=== PATIENT | male | born 1990 | race Caucasian/White ===

== ENCOUNTER 2020-07-21 14:35 | Inpatient (IN) | payer SELFPAY ==
[2020-07-21 14:38] VITALS: BP 130/93; PULSE 71; RESP 18; TEMP 36.7; O2SAT 99; BMI 36.5
--- NOTE | 2020-07-21 14:53 | W.ED.PSYCH ---
HPI - Psych General: Chief Complaint: Psychiatric Symptoms Stated Complaint: SI Time Seen by Provider: 07/21/20 14:46 History of Present Illness: HPI Narrative: Patient comes in with statement that he just did not want to be here on earth anymore. Does not have a plan to take his life. Has been treated for bipolar and major depression in the past is been about 10 years to been on medication. His mom is in the room with him and she is 1 of brought him here. Patient says he just does not want to go on 11 he said feels been lying about stuff and he just cannot get it straightened out and he just had 1 beer anymore. Denies any other problems presently. His dad had history of the same MD complaint: suicidal ideation and feels depressed Onset (ago): day(s) Duration: constant and getting worse History of same: Yes Relieving factors: none Associated psychiatric symptoms: other (Bipolar) Associated symptoms: Reports no associated symptoms, depression and suicidal ideation Treatments prior to arrival: none If self harm: admits thoughts of self harm Review of Systems Const: Denies: fever(s), chills or body aches Eyes: Denies: change in vision or blurry vision ENMT: Denies: throat pain or nasal congestion Card: Denies: chest pain or dyspnea on exertion Resp: Denies: dyspnea, productive cough or non-productive cough GI: Denies: abdominal pain, nausea or vomiting : Denies: difficulty urinating Musc: Denies: extremity pain Skin/Breast: Denies: rash Neuro: Denies: headache(s) Psych: Reports: depression, hopelessness, loss of interest and suicidal ideation; Denies: anxiety Romel/Lymph: Denies: easy bruising Physical Exam Const: COMMON NORMALS: no acute distress, average body habitus and patient oriented x3 HENMT: COMMON NORMALS: normocephalic HEAD & SCALP: normal to inspection and normocephalic FACE & SINUS: normal facial exam Eye: COMMON NORMALS: conjunctivae normal GENERAL EYE: appearance normal, both eyes and all related structures CONJUNCTIVA: Yes conjunctivae normal Neck/C-Spine: COMMON NORMALS: no JVD Chest: COMMONS NORMALS: normal inspection of the chest Resp: COMMON NORMALS: normal respiratory effort Cardio: COMMON NORMALS: no JVD GI: COMMON NORMALS: Normal to inspection, nondistended, normoactive bowel sounds present Extremity: COMMON NORMALS: normal to inspection and full ROM Neuro: COMMON NORMALS: patient oriented x3 Psych: COMMON NORMALS: mental status grossly normal, Normal thought process present and speech normal APPEARANCE: Yes grossly normal ATTITUDE: Yes engaged ACTIVITY/MOTOR BEHAVIOR: Yes appropriate eye contact SPEECH: Yes normal speech and Yes minimal MOOD & AFFECT: Yes depressed mood THOUGHT PROCESS: Normal thought process present THOUGHT CONTENT: Yes Suicidality present ATTENTION/CONCENTRATION: Yes attention grossly intact MEMORY/COGNITION: Yes memory grossly intact INSIGHT: Good insight present (Psych) MDM - Psych Lab Data: Labs: Lab Results 07/21/20 07/21/20 07/21/20 Range/Units 15:10 15:10 15:10 WBC 8.8 (4.0-10.0) 10^3/ uL RBC 5.59 H (4.1-5.3) 10^6/u L Hgb 16.3 (11.7-16.6) g/dL Hct 48.5 (42.0-52.0) % MCV 86.8 (80-94) fL MCH 29.2 (28.0-34.0) pg MCHC 33.6 (30.0-36.0) g/dL RDW 12.4 (12.1-15.1) % Plt Count 275 (130-400) 10^3/c mm MPV 9.4 (7.4-10.4) fL Neut % (Auto) 62.3 % Lymph % (Auto) 26.4 % [place] % (Auto) 9.0 % Eos % (Auto) 1.4 % Baso % (Auto) 0.6 % Neut # (Auto) 5.49 (1.8-7.7) 10^3/u L Lymph # (Auto) 2.3 (0.8-4.8) 10^3/u L [place] # (Auto) 0.8 (0.2-0.9) 10^3/u L Eos # (Auto) 0.1 (0.0-0.8) 10^3/u L Baso # (Auto) 0.1 (0.0-0.1) 10^3/u L Nucleated RBC % (a uto) 0 % Nucleated RBCs # 0.0 /100WBC Sodium 137 (136-145) mmol/L Potassium 4.0 (3.5-5.1) mmol/L Chloride 101 (98-107) mmol/L Carbon Dioxide 25 (22-29) mmol/L Anion Gap 15.0 (5-19) BUN 15 (6-20) mg/dL Creatinine 1.0 (0.7-1.2) mg/dL GFR Calculation 86.6 L (90-130) mL/min Glucose 87 (65-115) mg/dL Calculated Osmolal ity 284 L (285-295) mOsm/k g Calcium 9.2 (8.5-10.5) mg/dL Total Bilirubin 0.8 (0.15-1.2) mg/dL AST 18 (0-40) U/L ALT 20 (0-41) U/L Alkaline Phosphata se 55 (40-130) IU/L Total Protein 7.7 (6.6-8.7) g/dL Albumin 4.9 (3.5-5.2) g/dL Globulin 2.8 (1.3-4.6) g/dL Urine Color Yellow (Yellow) Urine Appearance Clear (CLEAR) Urine pH 6.5 (5-7) Ur Specific Gravit y 1.015 (1.005-1.030) Urine Protein Neg (Negative) Urine Glucose (UA) Norm (Normal) Urine Ketones Negative (Negative) Urine Blood Neg (Negative) Urine Nitrate Negative (Negative) Urine Bilirubin Neg (Negative) Urine Urobilinogen 1 H (Negative) mg/dL Ur Leukocyte Jeanine ase Negative (Negative) Salicylates < 0.3 L (3-10) mg/dL Urine Opiates Scre en (Negative) ng/mL Acetaminophen < 5.0 L (10-30) ug/mL Ur Barbiturates Sc reen (Negative) ng/mL Ur Phencyclidine S crn (Negative) ng/mL Ur Amphetamines Sc reen (Negative) ng/mL U Benzodiazepines Scrn (Negative) ng/mL Urine Cocaine Scre en (Negative) ng/mL U Marijuana (THC) Screen (Negative) ng/mL 07/21/20 Range/Units 15:10 WBC (4.0-10.0) 10^3/ uL RBC (4.1-5.3) 10^6/u L Hgb (11.7-16.6) g/dL Hct (42.0-52.0) % MCV (80-94) fL MCH (28.0-34.0) pg MCHC (30.0-36.0) g/dL RDW (12.1-15.1) % Plt Count (130-400) 10^3/c mm MPV (7.4-10.4) fL Neut % (Auto) % Lymph % (Auto) % [place] % (Auto) % Eos % (Auto) % Baso % (Auto) % Neut # (Auto) (1.8-7.7) 10^3/u L Lymph # (Auto) (0.8-4.8) 10^3/u L [place] # (Auto) (0.2-0.9) 10^3/u L Eos # (Auto) (0.0-0.8) 10^3/u L Baso # (Auto) (0.0-0.1) 10^3/u L Nucleated RBC % (a uto) % Nucleated RBCs # /100WBC Sodium (136-145) mmol/L Potassium (3.5-5.1) mmol/L Chloride (98-107) mmol/L Carbon Dioxide (22-29) mmol/L Anion Gap (5-19) BUN (6-20) mg/dL Creatinine (0.7-1.2) mg/dL GFR Calculation (90-130) mL/min Glucose (65-115) mg/dL Calculated Osmolal ity (285-295) mOsm/k g Calcium (8.5-10.5) mg/dL Total Bilirubin (0.15-1.2) mg/dL AST (0-40) U/L ALT (0-41) U/L Alkaline Phosphata se (40-130) IU/L Total Protein (6.6-8.7) g/dL Albumin (3.5-5.2) g/dL Globulin (1.3-4.6) g/dL Urine Color (Yellow) Urine Appearance (CLEAR) Urine pH (5-7) Ur Specific Gravit y (1.005-1.030) Urine Protein (Negative) Urine Glucose (UA) (Normal) Urine Ketones (Negative) Urine Blood (Negative) Urine Nitrate (Negative) Urine Bilirubin (Negative) Urine Urobilinogen (Negative) mg/dL Ur Leukocyte Jeanine ase (Negative) Salicylates (3-10) mg/dL Urine Opiates Scre en Negative (Negative) ng/mL Acetaminophen (10-30) ug/mL Ur Barbiturates Sc reen Negative (Negative) ng/mL Ur Phencyclidine S crn Negative (Negative) ng/mL Ur Amphetamines Sc reen Positive H (Negative) ng/mL U Benzodiazepines Scrn Negative (Negative) ng/mL Urine Cocaine Scre en Negative (Negative) ng/mL U Marijuana (THC) Screen Positive H (Negative) ng/mL Discharge Plan Discharge Patient Disposition: Admitted As Inpatient Admit Provider: Ayla Moyer Clinical Impression: Suicidal ideation, Drug abuse Condition: Stable Coding Level of Care Code ED Receptionist/Telephone Operator for Na Fwd Exam Comprehensive
[2020-07-21 15:23] LABS: Basophils # 0.1 10^3/uL (0.0-0.1); Basophils % 0.6 %; Eosinophils # 0.1 10^3/uL (0.0-0.8); Eosinophils % 1.4 %; Hematocrit 48.5 % (42.0-52.0); Hemoglobin 16.3 g/dL (11.7-16.6); Lymphocytes # 2.3 10^3/uL (0.8-4.8); Lymphocytes % 26.4 %; Mean Corpuscular HGB Conc 33.6 g/dL (30.0-36.0); Mean Corpuscular Hemoglobin 29.2 pg (28.0-34.0); Mean Corpuscular Volume 86.8 fL (80-94); Mean Platelet Volume 9.4 fL (7.4-10.4); Monocytes # 0.8 10^3/uL (0.2-0.9); Neutrophils # 5.49 10^3/uL (1.8-7.7); Neutrophils % 62.3 %; Nucleated Red Blood Cells % 0 %; Platelet Count 275 10^3/cmm (130-400); Red Blood Count 5.59 10^6/uL (4.1-5.3); Red Cell Distribution Width 12.4 % (12.1-15.1); White Blood Count 8.8 10^3/uL (4.0-10.0)
[2020-07-21 15:24] LABS: Add Urine Microscopic? NO; Charge for UA Resulting for Rev
[2020-07-21 15:33] LABS: Bilirubin Urine Neg (Negative); Blood Urine Neg (Negative); Glucose Urine UA Norm (Normal); Ketones Urine Negative (Negative); Nitrate Urine Negative (Negative); Protein Urine Neg (Negative); Specific Gravity, Urine 1.015 (1.005-1.030); Urine Appearance Clear (CLEAR); Urine Color Yellow (Yellow); pH Urine 6.5 (5-7)
[2020-07-21 15:34] LABS: Leukocyte Esterase Urine Negative (Negative); Urobilinogen Urine 1 mg/dL (Negative)
[2020-07-21 15:44] LABS: Alanine Aminotransferase 20 U/L (0-41); Albumin Level 4.9 g/dL (3.5-5.2); Alkaline Phosphatase 55 IU/L (40-130); Aspartate Amino Transferase 18 U/L (0-40); Blood Urea Nitrogen 15 mg/dL (6-20); Calcium 9.2 mg/dL (8.5-10.5); Carbon Dioxide 25 mmol/L (22-29); Chloride 101 mmol/L (98-107); Globulin 2.8 g/dL (1.3-4.6); Glomerular Filtration Rate 86.6 mL/min (90-130); Glucose 87 mg/dL (65-115); Osmolality Calculated 284 mOsm/kg (285-295); Sodium 137 mmol/L (136-145); Total Bilirubin 0.8 mg/dL (0.15-1.2); Total Protein 7.7 g/dL (6.6-8.7)
[2020-07-21 15:51] LABS: Amphetamines Screen Urine Positive (Negative); Barbiturates Screen Urine Negative (Negative); Benzodiazepines Screen Urine Negative (Negative); Cocaine Screen Urine Negative (Negative); Opiate Screen Urine Negative (Negative); PCP Screen Urine Negative (Negative); THC Screen Urine Positive (Negative)
[2020-07-21 15:54] LABS: Acetaminophen < 5.0 ug/mL (10-30); Salicylate < 0.3 mg/dL (3-10)
[2020-07-21 16:27] VITALS: BP 140/98; PULSE 75; RESP 16; O2SAT 98
[2020-07-21 16:39] VITALS: BP 123/84; PULSE 62; RESP 17; TEMP 36.4; O2SAT 99
[2020-07-21 20:31] VITALS: BP 128/90; PULSE 82; RESP 18; TEMP 36.8; O2SAT 100
[2020-07-21] MEDS: trazodone 50 mg Tablet PO ×2 (21:15→23:13)
--- NOTE | 2020-07-21 21:18 | PC.NURSE ---
PRN MED PT GIVEN 50MG [id number] FOR INSOMNIA, WILL CONTINUE TO MONITOR.
--- NOTE | 2020-07-21 22:09 | PC.NURSE ---
PRN MED MED EFFECTIVE, PT RESTING IN BED O S/S OF DISTRESS, WILL CONTINUE TO MONITOR.
--- NOTE | 2020-07-21 23:15 | PC.NURSE ---
PRN MED PT GIVEN 2ND 50MG TRAZODONE FOR INSOMNIA, WILL CONTINUE TO MONITOR.
[2020-07-21] MEDS: hyDROXYzine 25 mg Capsule 50 MG PO (23:25)
--- NOTE | 2020-07-21 23:33 | PC.NURSE ---
anxious pt is having a hard time resting, called his mother to go home, pt decided to stay, requested trazodone dose 2 and something for anxiety, educated on use of sleep aide and anxiety medication visteril, notified med nurse of pt need.
--- NOTE | 2020-07-21 23:35 | PC.NURSE ---
PM assessment pt is in his room, resting in his bed at the beginning of shift. Pt denied SI/HI/AH/VH. Endorses feeling down and feeling out of place. Stated his anxiety is minimal, however later in the shift, patient became more anxious, unable to sleep, requested sleep and anxiety prn's. pt called his mother, wants to go home. med nurse notified, prns given for sleep/anxiety. v/s are wnl, heart/lung sounds are wnl, denies pain at this time. will continue to observe.
[2020-07-22 06:00] VITALS: BP 108/70; PULSE 82; RESP 17; TEMP 36.5; O2SAT 96
--- NOTE | 2020-07-22 12:52 | P.HP_ITS ---
Providers/Chief Complaint Admitting Physician: Ayla Moyer DO Chief Complaint: SI HPI NPU History of Present Illness Stephen Tucker is a 30 year old male with longstanding history of cannabis abuse and reported past history of bipolar disorder presented to the emergency department with depressive symptoms in the context of an acute stressor of saying that people were calling him a liar about a recent situation which caused him to feel hurt. He states that he has denied any active thoughts about h arming himself and denies any history of suicide attempts or self-harm behavior. Patient's urine drug screen was noted to be positive for methamphetamine and he reports that he had used methamphetamine 3 days ago for the first time in approximately 3 years during which time he had used for about 1-1/2-years. Patient states that most recently he was feeling down, sad and occasionally tearful for the past several days after this recent event but in the past typically experiences depressive symptoms for about a week. He describes these periods as decreased motivation and decreased energy and decreased interest in his usual activities. He also reports that he has not engaged in many hobbies that he enjoys for quite a while. Patient reports his current living arrangement and life circumstances as exacerbating his symptoms. Per above, patient denies any past suicide attempts or self-harm but does report passive thoughts of not being here, or not wanting to be on earth. Patient reports that he had been told that he has bipolar disorder in the past but then describes periods of impulsive shopping or spending his money but these have been outside the context of any decreased need for sleep or pressured speech or periods of irritability or any other signs or symptoms consistent with a manic or hypomanic episode. He has experienced periods of decreased need for sleep and pressured speech during past episodes of methamphetamine use. Patient reports that he has experienced perceptual disturbances in the past with methamphetamine use but denies experiencing any hallucinations outside of substance use. He denies any paranoia or delusions or overvalued ideas. Patient states that he started using marijuana around the age of 18 and has used on a near daily basis since then. Patient reports that he first started using methamphetamine around the age 26 and used for a year and a half with no use for 3-year period until a couple days ago. Patient states that he has not taken any psychotropic medication for about 5 years and denies any history of substance treatment or counseling or therapy. Patient reports interest in starting a low-dose antidepressant as well as look ing into substance treatment and counseling. Review of Systems General: Reports: 10 or more systems reviewed and unremarkable except in HPI and below Meds NPU Home Medications Medication Instructions Recorded Confirmed Last Taken Type No Known Home Medications 07/21/20 07/21/20 Unknown History Allergies Allergy/AdvReac Type Severity Reaction Status Date / Time No Known Allergies Allergy Verified 07/21/20 14:43 COUNT INCLUDES THE [facility] NPU Other Psychiatric History: Other Psychiatric History: States that he was treated at [facility] about 5 years ago for a short period of time Denies any history of psychiatric hospitalization Denies any history of suicide attempt or self-harm behavior Patient does report family history of father committing suicide prior to his Reports family history of mother and sister with depression Denies any family history of psychiatric hospitalization Mental Status Exam MSE Comments: Appears stated age, shaved head, bearded, appropriately groomed and dressed in hospital scrubs, calm, cooperative, good eye contact Psychomotor activity is somewhat decreased, no agitation Speech is soft, normal rate, spontaneous, fair articulation, not pressured I am okay, incongruent, constricted, not labile Alert and oriented to person, place, time, situation Memory and concentration appear to be intact per interview Intellectual functioning appears to be average at best based on vocabulary, interview Thought process, occasional delays, linear, no flight of ideas, no looseness of associations Thought content, no delusions, no hallucinations, no suicidal homicidal ideation Insight and judgment appear to be intact Vitals/I&O/Wt Last Vital Signs Temp 97.7 F 07/22/20 06:00 Pulse 82 07/22/20 06:00 Resp 17 07/22/20 06:00 BP 108/70 07/22/20 06:00 Pulse Ox 96 07/22/20 06:00 Weight last 48 hrs Weight 108.862 kg Data NPU : 07/21/20 15:10 07/21/20 15:10 A&P Assessment and plan (1) Suicidal ideation: Status: Acute (2) Substance abuse: Status: Acute (3) Depressive disorder: Status: Acute Additional A&P Information 30-year-old male presenting with passive suicidal thoughts with ongoing depressive symptoms in the context of recent stressor. Patient has longstanding cannabis abuse with recent use of methamphetamine with past history of ongoing methamphetamine abuse. Patient has history of bipolar disorder although does not appear to articulate any past manic or hypomanic episodes but reports some impulse control with spending outside the context of any sustained mood symptoms. Patient would likely benefit from ongoing substance counseling/treatment as well as treatment with low-dose antidepressant targeting his depressive symptoms in conjunction with counseling/therapy targeting more adaptive coping strategies. VOLUNTARY ADMIT to inpatient psychiatry START citalopram 10 mg daily Coordinate with long term care social worker for post discharge treatment, substance counselin g/treatment Involuntary Hold Information 96 Hour Hold: 96 Hour Involuntary Admission: No Attestations NPU Medical Necessity Statement*: Require psychiatric hospitalization for medication stabilization, coordination for safe discharge Anticipate hospital stay to exceed 2 midnights Time Spent in Patient Care: Greater than 35 minutes (>than 50% of time spent in counselling and/or direct pt care on unit) . Coding Level of Care Code Acute Global Creative Chairman for Na Owen Diagnoses Suicidal ideation R45.851 Substance abuse F19.10 Depressive disorder F32.9
[2020-07-22] MEDS: citalopram 20 mg Tablet 10 MG PO (13:25)
[2020-07-22] MEDS: acetaminophen 325 mg Tablet 650 MG PO (13:27)
[2020-07-22 14:00] VITALS: BP 115/78; PULSE 80; RESP 18; TEMP 36.7; O2SAT 97
[2020-07-22] MEDS: trazodone 50 mg Tablet PO (20:31)
[2020-07-22 20:39] VITALS: BP 119/83; PULSE 81; RESP 18; TEMP 36.4; O2SAT 97
--- NOTE | 2020-07-22 23:28 | PC.NURSE ---
PM assessment PT V/S ARE WNL, HEART/LUNG SOUNDS ARE NORMAL, PT DENIES SI/HI, DENIES PAIN, DENIES AH/VH. PT IS OUT OF ROOM IN THE DAYROOM, WALKING WITH OTHER PATIENTS, HE IS TALKATIVE TONIGHT, OVERALL HE SAYS HE IS TOLERATING CELEXA WELL, EDUCATED ON MEDICATION, COMPLIANCE, FOLLOW UP CARE, NECESSITY OF JOURNAL ENTRIES IF HE NOTICES MOOD SWINGS OR ANY SIDE EFFECTS, WRITTEN INFO GIVEN TO PT ON REQUEST. PT SAYS HE IS SAD, EXPRESSED CONCERNS ABOUT SEEING HIS CHILD, FIGHTING CUSTODY, AND ABOUT A FACEBOOK POST MADE REGARDING THE POSSIBLE OF A FRIEND, THE BACKLASH ON SOCIAL MEDIA REGARDING HIS MISTAKEN POST, AND HIS GUILT FOR FEELING INADEQUATE. PT ASKS QUESTIONS, ANSWERS APPROPRIATELY. PT IS MUCH MORE OPEN THIS EVENING. PT REQUESTED MEDICATION TO HELP HIM SLEEP THIS EVENING, MED NURSE NOTIFIED, WILL CONTINUE TO OBSERVE.
[2020-07-23 06:00] VITALS: BP 103/69; PULSE 80; RESP 17; TEMP 36.4; O2SAT 97
[2020-07-23] MEDS: citalopram 20 mg Tablet 10 MG PO (08:52)
--- NOTE | 2020-07-23 13:16 | PM.NPN ---
Subjective NPU Subjective: Interval history: Patient reports improved sleep and appetite Reports tolerating medication well with no reports of any medication side effects States that his depressive symptoms have improved, denies any interval suicidal ideation Patient continues to communicate his understanding of the need to abstain from the use of substances and continues to demonstrate interest in wanting to pursue outpatient substance counseling/treatment Per staff report, no interval behavioral disturbances Mental Status Exam MSE Comments: Polite, interactive, appropriately groomed and dressed, good eye contact Psychomotor activity is neither increased nor decreased, no agitation Speech is normal volume, normal rate, spontaneous, fair articulation, not pressured I feel a little better, congruent, not labile Alert and oriented to person, place, time, situation Memory and concentration appear to be intact per interview Thought process, linear, no flight of ideas, no looseness of associations Thought content, no delusions, no hallucinations, no suicidal or homicidal ideation Insight and judgment appear to be intact Vitals/I&O/Wt Last Vital Signs Temp 97.5 F L 07/23/20 06:00 Pulse 80 07/23/20 06:00 Resp 17 07/23/20 06:00 BP 103/69 07/23/20 06:00 Pulse Ox 97 07/23/20 06:00 Weight last 48 hrs Weight 108.862 kg Data NPU : 07/21/20 15:10 07/21/20 15:10 A&P Assessment and plan (1) Suicidal ideation: Status: Acute (2) Depressive disorder: Status: Acute (3) Substance abuse: Status: Acute Additional A&P Information Reports tolerating medication well with no reports of any medication side effects, reports improvement in depressive symptoms, denies any interval suicidal ideation motivation to pursue substance counseling treatment post discharge. CONTINUE current medication, continue to monitor Involuntary Hold Information 96 Hour Hold: 96 Hour Involuntary Admission: No Attestations NPU Medical Necessity Statement*: Continues to require psychiatric hospitalization for medication stabilization, coordination for safe discharge Coding Level of Care Code Acute Steel Pourer for Na Owen Diagnoses Suicidal ideation R45.851 Depressive disorder F32.9 Substance abuse F19.10
[2020-07-23 14:00] VITALS: BP 104/65; PULSE 89; RESP 17; TEMP 37.1
[2020-07-23 20:05] VITALS: BP 111/65; PULSE 73; RESP 18; TEMP 37; O2SAT 98
[2020-07-23] MEDS: trazodone 50 mg Tablet PO (20:06)
--- NOTE | 2020-07-23 21:11 | PC.NURSE ---
pt given Trazodone 50mg po per pt request for sleep aide at 2006. pt resting quietly with both eyes closed.
[2020-07-24 06:00] VITALS: BP 110/70; PULSE 68; RESP 18; TEMP 36.6; O2SAT 96
[2020-07-24] MEDS: citalopram 20 mg Tablet 10 MG PO (08:14)
--- NOTE | 2020-07-24 09:55 | P.DS_ITS ---
Diagnoses at Discharge Discharge Diagnosis (1) Suicidal ideation: Status: Acute (2) Depressive disorder: Status: Acute (3) Substance abuse: Status: Acute Reason for Visit Reason for Visit: SI Hospital Course Hospital Course 30 year old male with longstanding history of cannabis abuse and reported past history of bipolar disorder presented to the emergency department with depressive symptoms in the context of an acute stressor of saying that people were calling him a liar about a recent situation which caused him to feel hurt. Patient continued to endorse intermittent depressive symptoms but denied any active suicidal ideation at the time of initial evaluation. Patient was started on citalopram 10 mg daily targeting depressive symptoms with good effect and no report of any medication side effects. Patient participated in unit milieu with no reports of any behavioral disturbances. Patient communicated active interest in seeking post discharge therapy and substance counseling. He was not suicidal at the time of discharge and did not appear to pose an imminent threat of harm to self or others. Low to moderate risk of harm to self given no current suicidal ideation and no history of suicide attempts although patient's risk may be elevated if he continues to abuse substances or is noncompliant with his medication and medication management follow-up leading to maladaptive coping strategies and unexpected, impulsive behavior. Risk mitigation included psychiatric hospitalization for observation for return of any suicidal ideation or behaviors, medication stabilization, recommendation to abstain from the use of substances and alcohol as well as the need for post discharge compliance with medication, medication management and substance counseling/treatment in order to target the development of more adaptive coping strategies. Patient was able to communicate his understanding of the need to abstain from the use of substances and alcohol as well as the need for compliance with his post discharge care to include medication, medication management and counseling in order to further mitigate his risk of harm to self or others. Involuntary Hold Information 96 Hour Hold: 96 Hour Involuntary Admission: No Mental Status Exam MSE Comments: Sitting in the day room, calm, cooperative, appropriately groomed and dressed, good eye contact Psychomotor activity is neither increased nor decreased, no agitation Speech is normal volume, normal rate, spontaneous, fair articulation, not pressured I feel good, congruent, not labile Alert and oriented to person, place, time, situation Memory and concentration appear to be intact per interview Thought process, linear, no flight of ideas, no looseness of associations Thought content, no delusions, no hallucinations, no suicidal or homicidal ideation Insight and judgment appear to be intact Discharge Data Vitals: Last Vital Signs Temp 97.9 F 07/24/20 06:00 Pulse 68 07/24/20 06:00 Resp 18 07/24/20 06:00 BP 110/70 07/24/20 06:00 Pulse Ox 96 07/24/20 06:00 Discharge Plan Discharge Patient Disposition: Home Condition: Stable Prescriptions: New citalopram 20 mg Tablet 10 mg PO DAILY Qty: 30 RF: 0 Discharge Orders: Discharge Order (Routine); Ordered 07/24/20 Ordered By: Ayla Moyer Discharge Diet: Regular Discharge Activity: Resume usual activity Discharge Attestations NPU Time Spent in Discharge Care*: greater than 30 min Status at Discharge: Cognitive status at discharge: cognitively intact , Behavioral status at discharge: cooperative , Functional status at discharge: independent ambulation Overall status at discharge: patient is back to baseline Coding Level of Care Code Acute Bake Room Worker for Na Fwd Diagnoses Suicidal ideation R45.851 Depressive disorder F32.9 Substance abuse F19.10
[2020-07-24 10:16] VITALS: BP 110/70; PULSE 68; RESP 18; TEMP 36.6; O2SAT 96
== END 2020-07-24 12:47 | disposition home or self-care (01) | DRG 881 ==
LOC: ER 15:58 → NP 16:17
PROVIDERS: Admitting Provider Psychiatry & Neurology Psychiatry; Emergency Provider Nurse Practitioner Family; Visit Provider Psychiatry & Neurology Psychiatry
DX: F32.9 Major depressive disorder, single episode, unspecified (principal); R45.851 Suicidal ideations; F15.10 Other stimulant abuse, uncomplicated; F12.10 Cannabis abuse, uncomplicated
CPT/HCPCS: 80053; 80306; 80307; 81003; 85025; 99285

== ENCOUNTER 2021-10-28 18:47 | Emergency (ER) | payer MEDICAID, SELFPAY ==
[2021-10-28 18:56] VITALS: BP 123/82; PULSE 103; RESP 16; TEMP 36.5; O2SAT 96
--- NOTE | 2021-10-28 19:54 | W.ED.WOUNDLC ---
HPI - Wound/Laceration General: Chief Complaint: Wound/Laceration Stated Complaint: R arm lac form busted window Time Seen by Provider: 10/28/21 19:35 History of Present Illness: Patient is a 31-year-old male comes to the ED with laceration to right forearm. Injury occurred around 3 PM today. Patient says he got mad and punched a glass window with his right fist. He broke the glass and caused multiple lacerations to his right forearm. He was able to get lacerations bandaged up and bleeding controlled. Patient is up-to-date on his tetanus. Associated symptoms: Denies chills, fever(s), nausea or vomiting Review of Systems Const: Denies: fever(s), chills or fatigue Eyes: Denies: change in vision or eye discomfort ENMT: Denies: throat pain, odynophagia, nasal discharge or nasal congestion Card: Denies: chest pain, palpitations, edema, swelling of feet/ankles, dyspnea on exertion or orthopnea Resp: Denies: dyspnea, productive cough or non-productive cough GI: Denies: abdominal pain, nausea, vomiting, diarrhea, constipation or hematochezia : Denies: flank pain, difficulty urinating, dysuria or hematuria Musc: Denies: neck pain, back pain or extremity swelling Skin/Breast: Reports: new lesions (Laceration right forearm); Denies: rash Neuro: Denies: headache(s), numbness in extremities or weakness in extremities [facility] PFSH: Medical History Drug abuse No pertinent family history Physical Exam Const: COMMON NORMALS: patient oriented x3 and alert GENERAL APPEARANCE: cooperative HENMT: COMMON NORMALS: normocephalic HEAD & SCALP: normocephalic MOUTH: Normal oral and palatal mucosa present THROAT: posterior oropharynx normal and uvula midline Neck/C-Spine: COMMON NORMALS: supple GENERAL: Yes normal visual inspection Resp: COMMON NORMALS: normal respiratory effort, No retractions, No use of accessory muscles and clear to auscultation bilaterally AUSCULTATION: clear to auscultation bilaterally Cardio: COMMON NORMALS: regular rate, regular rhythm, S1 normal heart sound present, S2 normal heart sound present, No gallops present (Cardio), No clicks present (Cardio), No murmurs present (Cardio) and Peripheral pulses 2+ throughout RATE: regular rate RHYTHM: regular rhythm HEART SOUNDS: S1 normal heart sound present and S2 normal heart sound present PERIPHERAL PULSES: Peripheral pulses 2+ throughout GI: COMMON NORMALS: Normal to inspection, nondistended, normoactive bowel sounds present, Soft to palpation, non-tender and no masses PALPATION: Yes Soft to palpation : COMMON NORMALS: Yes no CVA tenderness BLADDER/KIDNEY EXAM: Yes no CVA tenderness Back/Pelvis: COMMON NORMALS: no CVA tenderness Extremity: NARRATIVE EXTREMITY EXAM: Right forearm?patient has 3 lacerations. First laceration is curved shape 4 cm long laceration. Second laceration is 1.5 cm linear superficial laceration. Third laceration is is 9 cm in length and is flap shaped. Minimal active bleeding from all laceration sites. No visible foreign bodies seen. GENERAL: Yes normal exam except as noted Neuro: COMMON NORMALS: patient oriented x3 and moves all extremities SENSORIUM/ORIENTATION: Yes alert Skin: GENERAL SKIN EXAM: dry skin Procedures Laceration Laceration 1: Site: upper extremity (right forearm) Side (If applicable): right Size (cm): 4 Description: irregular (Curve shaped) Depth: simple, single layer Amount of anesthesia used (mL): 6 Pre-repair: wound explored (No glass or foreign body found) and irrigated extensively (You can extensively normal saline and beta iodine.) Skin layer closed with: nylon Size (cm): 4-0 Number of sutures: 9 Laceration 2: Site: upper extremity (Right forearm) Side (If applicable): right Size (cm): 1.5 Description: linear Depth: simple, single layer Local Anesthetic: lidocaine 1% and with epi Amount of anesthesia used (mL): 3 Pre-repair: wound explored (No glass or foreign body found) and irrigated extensively (With normal saline and beta iodine wash) Skin layer closed with: nylon Size (cm): 4-0 Number of sutures: 5 Technique: simple, interrupted Laceration 3: Site: upper extremity (Forearm) Side (If applicable): right Size (cm): 9 Description: flap and clean Depth: simple, single layer Local Anesthetic: lidocaine 1% and with epi Amount of anesthesia used (mL): 6 Pre-repair: wound explored (No glass or foreign body found) and irrigated extensively (Irrigated extensively normal saline and beta iodine) Skin layer closed with: nylon Size (cm): 4-0 Number of sutures: 17 Technique: simple, interrupted Course Vital Signs: Vital signs: Vital Signs Temperature 97.7 F 10/28/21 18:56 Pulse Rate 77 10/29/21 01:28 Respiratory Rate 98 H 10/29/21 01:28 Blood Pressure 127/78 10/29/21 01:28 Pulse Oximetry 98 10/29/21 01:28 MDM - Wound/Laceration Medical Decision Making Patient is a 31-year-old male comes to the ED with multiple lacerations to right forearm after punching glass. He is up-to-date on his tetanus. He has 3 lacerations on his forearm that were irrigated extensively with normal saline and beta iodine wash. All 3 wounds were explored and no foreign bodies or glass found. Lidocaine 1% with epi was used as local and 31 total nonabsorbable sutures were placed to close up laceration sites. See procedure note for details. There is then apply triple biotic ointment on wounds and bandage them up. Patient was given dose of Keflex here in the ED. X-ray of right forearm and right hand showed no acute fractures. Patient was stable for discharge home given instructions on how to care for lacerations and to have sutures removed in about 7 to 10 days. Sent home with a prophylactic antibiotic prescription. Return to ED precautions given. Patient understood and agreed with plan. Lab Data Radiology Impressions Forearm X-Ray 10/28/21 19:58 IMPRESSION: 1. No acute fracture demonstrated. 2. 1 mm and 2 mm radiodensities are noted in the proximal soft tissues on the lateral view, likely representing small glass fragments. Hand X-Ray 10/28/21 19:58 IMPRESSION: No acute abnormality demonstrated. Discharge Plan Discharge Patient Disposition: Home Clinical Impression: Lacerations of multiple sites of right arm Qualifiers: Encounter type: initial encounter Qualified Code(s): S41.111A - Laceration without foreign body of right upper arm, initial encounter Condition: Stable Prescriptions: New cephalexin 500 mg capsule 500 mg PO Q6H 7 Days Qty: 28 0RF No Action citalopram 20 mg Tablet 10 mg PO DAILY Qty: 30 0RF Discharge Orders: Discharge ED (Routine); Ordered 10/29/21 Ordered By: Claudio Rao Discharge Diet: Regular Discharge Activity: Increase activity as tolerated Patient Instructions: Laceration, Care For Your Stitches (DC) Activity Restrictions/Additional Instructions: Take full course of antibiotics as prescribed. Keep laceration site clean and dry and do not submerge laceration site in any water for at least 5 days. Clean daily with soap and water and then apply thin layer of triple antibiotic ointment on it and cover with bandage. Watch for signs of infection such as redness, warmth, increased tenderness and puslike drainage. If you see the signs of infection return to the ED, urgent care or PCP for reevaluation. call your PCP to schedule a follow-up appointment for reevaluation and suture removal in about 7- 10 days. Continue taking all home meds. Follow discharge plans as discussed. You can return to the ED if symptoms worsen. Coding Level of Care Code ED Skiver Counter for Na Owen Exam Comprehensive
--- NOTE | 2021-10-28 19:58 | XRR_ITS ---
PROCEDURE INFORMATION: Exam: XR Right Hand Exam date and time: 10/28/2021 8:14 PM Age: 31 years old Clinical indication: Injury or trauma; Hand; Right; Patient HX: Multiple lacerations after punching a window; Additional info: Punched window and broke glass TECHNIQUE: Imaging protocol: Radiologic exam of the Right hand. Views: 3 or more views. COMPARISON: No relevant prior studies available. FINDINGS: Bones/joints: No fracture or other acute osseous abnormality. No acute joint abnormality demonstrated. Soft tissues: The soft tissues appear unremarkable. No radiopaque foreign body demonstrated in the soft tissues. XR/XR hand RT min 3V* [id number] IMPRESSION: No acute abnormality demonstrated.
--- NOTE | 2021-10-28 19:58 | XRR_ITS ---
PROCEDURE INFORMATION: Exam: XR Right Forearm Exam date and time: 10/28/2021 8:16 PM Age: 31 years old Clinical indication: Injury or trauma; Arm, lower; Right; Patient HX: Multiple lacerations after punching a window; Additional info: Punched window and broke glass-multiple lacerations TECHNIQUE: Imaging protocol: Radiologic exam of the Right forearm. Views: 2 views. COMPARISON: CR ( EX, ) 10/28/2021 8:14 PM FINDINGS: Bones/joints: No fracture or other acute osseous abnormality. Soft tissues: 1 mm and 2 mm radiodensities are noted in the proximal soft tissues on the lateral view, likely representing small glass fragments. Other findings: Bandage artifact overlies the midportion of the forearm. XR/XR forearm RT 2V [id number] IMPRESSION: 1. No acute fracture demonstrated. 2. 1 mm and 2 mm radiodensities are noted in the proximal soft tissues on the lateral view, likely representing small glass fragments.
[2021-10-28] MEDS: HYDROcodone-acetaminophen 7.5-325 mg Tablet 1 TAB PO (20:00)
--- NOTE | 2021-10-29 01:21 | PC.NURSE ---
Triple antibiotic applied to wounds and arm wrapped with non-advesive gauze and curlex gauze. Pt. given instructions for home.
[2021-10-29] MEDS: cephALEXin 500 mg Capsule PO (01:23)
[2021-10-29] MEDS: neomycin-poly-bacitracin oint 28 gm 1 APPLIC TOPICAL (01:23)
[2021-10-29 01:28] VITALS: BP 127/78; PULSE 77; RESP 98; O2SAT 98
== END 2021-10-29 01:31 | disposition home or self-care (01) ==
PROVIDERS: Emergency Provider Physician Assistant
DX: S51.811A Laceration without foreign body of right forearm, initial encounter (principal); W25.XXXA Contact with sharp glass, initial encounter
CPT/HCPCS: 12005; 73090; 73130; 99283

== ENCOUNTER → 2024-01-09 10:19 | Outpatient (BNVA) | payer OTHER, SELFPAY | PROVIDERS: Visit Provider Psychiatry & Neurology Psychiatry | DX: F32.9 Major depressive disorder, single episode, unspecified (principal) | CPT/HCPCS: 80061; 83036 ==

== ENCOUNTER → 2024-07-14 14:53 | Outpatient (BNVA) | payer BC, SELFPAY ==
[2024-04-27 15:05] VITALS: BP 133/86; BMI 29.8
== END ==
PROVIDERS: PCP Family Medicine; Visit Provider Family Medicine
DX: Z13.6 Encounter for screening for cardiovascular disorders (principal); R53.83 Other fatigue; Z76.89 Persons encountering health services in other specified circumstances; F32.9 Major depressive disorder, single episode, unspecified; Z13.41 Encounter for autism screening; F17.219 Nicotine dependence, cigarettes, with unspecified nicotine-induced disorders; Z71.6 Tobacco abuse counseling
CPT/HCPCS: 80053; 84443; 85025

== ENCOUNTER → 2025-01-26 14:27 | Outpatient (BNVA) | payer OTHER, SELFPAY ==
[2024-10-06 08:43] VITALS: BP 133/86; BMI 29.8
== END ==
PROVIDERS: PCP Family Medicine; Visit Provider Psychiatry & Neurology Psychiatry
DX: Z79.899 Other long term (current) drug therapy (principal)
CPT/HCPCS: 80061; 83036; 83721